=== PATIENT | female | born 1940 | race Caucasian/White ===

== ENCOUNTER 2020-07-20 10:58 | Day surgery (SDC) | payer MEDICARE, OTHER ==
[2020-07-20] VITALS (9 sets, daily range): BP systolic 113–159; BP diastolic 69–102; PULSE 63–136; TEMP 98.1
[~2020-07-20] VITALS: Ht 165.1 cm; Wt 87.6 kg
[~2020-07-20 10:58] MED LIST: COUMADIN 1MG1 MG/TAB PO; COZAAR100 MG PO; HCTZ12.5TAB PO; LOPRESSOR 225 MG/TAB PO; NORVASC 5MG5 MG/TAB PO; OCUVITE1 TA1 PO; SYNTHROID0.112 MG/T PO; TOPROL XL 25MG25 MG PO; TYLENOL PM EXTR1 TA1 PO; VITAMIN B12 681 TAB PO; VITAMIN D250 MCG PO
[2020-07-20] MEDS ORDERED: ASPIRIN 81M81 MG/TA2 PO (11:48)
[2020-07-20] MEDS ORDERED: COLON CLEANSE PO (11:49)
[2020-07-20] MEDS ORDERED: AIRBORNE PO (11:52)
[2020-07-20] MEDS ORDERED: MAGNESIUM CITR100 MG PO (11:52)
[2020-07-20] MEDS ORDERED: DUO-KAPS1 CAP PO (11:53)
[2020-07-20] MEDS ORDERED: PHARMASSURE ZIN50 MG PO (11:54)
[2020-07-20] MEDS ORDERED: XARELTO10 MG PO (11:58)
[2020-07-20] MEDS ORDERED: XARELTO20 MG PO ×2 (12:13→14:01)
[2020-07-20 12:15] LABS: HEMATOCRIT 42.4 % (37.0-47.0); HEMOGLOBIN 14.5 g/dl (12.5-16.0); MEAN CELL VOLUME 90 fl (80.0-100.0); MEAN CORPUSCULAR HEMOGLOBIN 31 pg (27.0-31.0); MEAN CORPUSCULAR HGB CONC 34 g/dl (33.0-37.0); MEAN PLATELET VOLUME 8.3 fl (7.4-10.4); PLATELET COUNT 256 K/mm3 (130-400); RED BLOOD COUNT 4.74 M/mm3 (4.10-5.30); REDCELL DISTRIBUTION WIDTH-CV 12.8 % (11.5-14.5)
[2020-07-20 12:31] LABS: CALCIUM 9.6 mg/dL (8.4-10.2); CREATININE, serum 0.47 (0.52-1.25); POTASSIUM 3.8 mmol/L (3.4-5.0)
[2020-07-20 12:38] LABS: INR 1.9 (0.8-3.0); PROTHROMBIN TIME 21.2 SECONDS (9.7-12.8)
--- NOTE | 2020-07-20 13:40 | NUR ---
Report from Dexter Juares.Patient observed alert and orientated x 3,respirations even and unlabored.Spouse at bedside.
[2020-07-20] MEDS ORDERED: CORDARONE200 MG/TAB PO (14:02)
--- NOTE | 2020-07-20 15:21 | NUR ---
Discharge instructions given to pt.Pt verbalizes understanding.INT removed,catheter tip intact.Pt escorted out via wheelchair by this nurse.
== END 2020-07-20 16:21 | disposition home or self-care (01) ==
LOC: COL.CAR 10:58
PROVIDERS: Internal Medicine Adult Congenital Heart Disease
DX: I48.0 Paroxysmal atrial fibrillation (principal); E78.5 Hyperlipidemia, unspecified; I11.0 Hypertensive heart disease with heart failure; I50.22 Chronic systolic (congestive) heart failure; Q21.1 Atrial septal defect; Z88.0 Allergy status to penicillin; Z88.2 Allergy status to sulfonamides; Z90.49 Acquired absence of other specified parts of digestive tract; Z96.653 Presence of artificial knee joint, bilateral; Z20.828 Contact with and (suspected) exposure to other viral communicable diseases
CPT/HCPCS: J2704

== ENCOUNTER 2021-08-03 23:45 | Emergency (ER) | payer MEDICARE, OTHER ==
[~2021-08-03] VITALS: Ht 165.1 cm; Wt 84.5 kg
[~2021-08-03 23:45] MED LIST changes: +AIRBORNE PO; +ASPIRIN 81M81 MG/TA2 PO; +COLON CLEANSE PO; +CORDARONE200 MG/TAB PO; +DUO-KAPS1 CAP PO; +MAGNESIUM CITR100 MG PO; +PHARMASSURE ZIN50 MG PO; +XARELTO10 MG PO; +XARELTO20 MG PO
[2021-08-04] MEDS ORDERED: PERCOCET 325 MG1 TA2 PO ×3 (02:24→11:36)
[2021-08-04] MEDS ORDERED: FLEXERIL 1010 MG/TAB PO (02:25)
[2021-08-04] MEDS ORDERED: ZOFRAN ODT8 MG PO (02:25)
[2021-08-04 03:10] VITALS: BP 160/82; PULSE 79; TEMP 98.4
== END 2021-08-04 03:10 | disposition home or self-care (01) ==
LOC: COL.ER 23:45
DX: M54.16 Radiculopathy, lumbar region (principal); I10 Essential (primary) hypertension; I48.91 Unspecified atrial fibrillation; E03.9 Hypothyroidism, unspecified; Z79.01 Long term (current) use of anticoagulants; Z79.890 Hormone replacement therapy; Z79.899 Other long term (current) drug therapy
CPT/HCPCS: J2270